=== PATIENT | female | born 1975 | race Caucasian/White ===

== ENCOUNTER 2016-10-22 07:00 | Day surgery (SDC) | payer OTHER ==
[~2016-10-22 07:00] MED LIST: KLONOPIN0.5 M1 PO; MOTRIN600 MG PO; PERCOCET 5/3251 TAB PO; PROZAC10 M1 PO; VITAMIN D PO; ZOLOFT; ZOLOFT100 MG PO
[2016-10-22 07:36] LABS: URINE BILIRUBIN NEGATIVE (NEG); URINE BLOOD NEGATIVE (NEG); URINE GLUCOSE (UA) NEGATIVE (NEG); URINE KETONE NEGATIVE (NEG); URINE LEUKOCYTE ESTERASE NEGATIVE (NEG); URINE NITRITE NEGATIVE (NEG); URINE PROTEIN NEGATIVE (NEG); URINE SPECIFIC GRAVITY 1.015 (1.003-1.030)
[2016-10-22 07:37] LABS: PROTHROMBIN TIME 11.6 SECONDS (9.0-13.6)
[2016-10-22 07:37] LABS: URINE APPEARANCE CLEAR; URINE COLOR YELLOW
[2016-10-22 07:44] LABS: ANION GAP 11 mmol/L (0-20); BLOOD UREA NITROGEN 12 mg/dl (6-24); CARBON DIOXIDE-VENOUS 24 mmol/L (22-32); CHLORIDE 107 mmol/l (96-110); CREATININE 0.95 mg/dl (0.50-1.10); GLUCOSE 116 mg/dL (70-110); POTASSIUM 4.1 mmol/L (3.7-5.1); SODIUM 138 mmol/L (135-145); eGFR VALUE FOR BLACK 86 mL/Min
[2016-10-23] MEDS ORDERED: ZOFRAN4 M2 PO (01:36)
[2016-10-23] MEDS ORDERED: DULCOLAX10 MG RC (01:38)
[2016-10-23] MEDS ORDERED: SURFAK240 M2 PO (01:48)
[2016-10-23] MEDS ORDERED: PERCOCET 5-3251 EACH PO (01:50)
[2016-10-23] MEDS ORDERED: PREMARIN30 GM OTHER (01:52)
[2016-10-23 05:10] LABS: EOS % 0.1 % (0-7); HCT-HEMATOCRIT 29.7 % (34.0-49.0); HGB-HEMOGLOBIN 9.8 gm/dl (12.0-15.5); IMMATURE GRANULOCYTES ABSOLUTE 0.03 tho/cmm (0-0.03); IMMATURE GRANULOCYTES PERCENT 0.2 % (0-0.3); LYMPH % 8.7 % (20-45); LYMPH ABSOLUTE COUNT 1.3 tho/cmm (0.8-4.5); MCH (MEAN CORPUSCULAR HGB) 27.8 pg (28.0-32.0); MCV (MEAN CELL VOLUME) 84.4 fl (82.0-96.0); MEAN PLATELET VOLUME 11.4 cmc (9.4-12.4); MONO % 7.5 % (0-12); MONOCYTE ABSOLUTE COUNT 1.1 tho/cmm (0.0-1.2); NEUTROPHIL ABSOLUTE COUNT 12.2 tho/cmm (1.6-8.0); NEUTROPHIL-AUTOMATED 12.2 tho/cmm (1.6-8.0); NEUTROPHILS % 83.5 % (40-80); PLATELET COUNT 182 tho/cmm (150-450); RED BLOOD COUNT 3.52 mil/cmm (4.00-5.20); RED CELL DISTRIBUTION WIDTH 13.4 % (12.4-16.4); WHITE BLOOD COUNT 14.6 tho/cmm (4.0-10.0)
[2016-10-23 05:14] LABS: ANION GAP 11 mmol/L (0-20); BLOOD UREA NITROGEN 8 mg/dl (6-24); CALCIUM 8.6 mg/dl (8.5-10.5); CARBON DIOXIDE-VENOUS 26 mmol/L (22-32); CHLORIDE 110 mmol/l (96-110); CREATININE 0.87 mg/dl (0.50-1.10); GLUCOSE 151 mg/dL (70-110); POTASSIUM 4.6 mmol/L (3.7-5.1); SODIUM 142 mmol/L (135-145); eGFR VALUE FOR BLACK >90 mL/Min
[2016-10-23 06:47] LABS: URINE BILIRUBIN NEGATIVE (NEG); URINE BLOOD NEGATIVE (NEG); URINE GLUCOSE (UA) NEGATIVE (NEG); URINE KETONE NEGATIVE (NEG); URINE LEUKOCYTE ESTERASE NEGATIVE (NEG); URINE NITRITE NEGATIVE (NEG); URINE PROTEIN NEGATIVE (NEG); URINE SPECIFIC GRAVITY 1.005 (1.003-1.030)
[2016-10-23 06:50] LABS: URINE APPEARANCE CLEAR; URINE COLOR COLORLESS
--- NOTE | 2016-10-23 19:13 | NUR ---
VAGINAL PACKING REMOVED AROUND 0515. PATIENT TOLERATED PROCEDURE WELL.
== END 2016-10-23 12:35 ==
LOC: SHSB 07:00 → ORW 09:00 → PACU 11:46 → OBGE 12:53
PROVIDERS: Obstetrics & Gynecology
PROC: 0UT94ZZ Resection of Uterus, Percutaneous Endoscopic Approach (ICD-10-PCS; principal; 2016-10-22)
PROC: 0UTC4ZZ Resection of Cervix, Percutaneous Endoscopic Approach (ICD-10-PCS; 2016-10-22)
PROC: 0UT04ZZ Resection of Right Ovary, Percutaneous Endoscopic Approach (ICD-10-PCS; 2016-10-22)
PROC: 0UT74ZZ Resection of Bilateral Fallopian Tubes, Percutaneous Endoscopic Approach (ICD-10-PCS; 2016-10-22)
PROC: 0U594ZZ Destruction of Uterus, Percutaneous Endoscopic Approach (ICD-10-PCS; 2016-10-22)
PROC: 8E0W4CZ Robotic Assisted Procedure of Trunk Region, Percutaneous Endoscopic Approach (ICD-10-PCS; 2016-10-22)
PROC: 0JQC0ZZ Repair Pelvic Region Subcutaneous Tissue and Fascia, Open Approach (ICD-10-PCS; 2016-10-22)
PROC: 0WQN0ZZ Repair Female Perineum, Open Approach (ICD-10-PCS; 2016-10-22)
DX: N81.4 Uterovaginal prolapse, unspecified (principal); N81.89 Other female genital prolapse; N80.0 Endometriosis of uterus; N80.3 Endometriosis of pelvic peritoneum; N83.201 Unspecified ovarian cyst, right side; F41.9 Anxiety disorder, unspecified; F32.9 Major depressive disorder, single episode, unspecified; Z79.899 Other long term (current) drug therapy; Z90.49 Acquired absence of other specified parts of digestive tract; Z98.890 Other specified postprocedural states
CPT/HCPCS: J0690; J2175; J2270; J2405; J3480; J7030